=== PATIENT | female | born 1980 | race Caucasian/White ===

== ENCOUNTER 2016-12-17 06:22 | Emergency (ER) | payer MEDICAID ==
[2016-12-17 06:37] VITALS: BP 110/69
== END 2016-12-17 07:01 | disposition home or self-care (01) ==
LOC: ED 06:22
DX: B34.9 Viral infection, unspecified (principal); E07.9 Disorder of thyroid, unspecified

== ENCOUNTER 2018-04-12 10:17 | Inpatient (IN) | payer OTHER ==
[~2018-04-12] VITALS: Ht 162.6 cm; Wt 90.4 kg
[2018-04-12 10:25] VITALS: Ht 162.6 cm; Wt 90.4 kg
[2018-04-12 11:00] LABS: microscopic required? YES; urine erythrocyte 1+ (NEGATIVE)
[2018-04-12 11:02] LABS: CALCIUM 8.8 mg/dL (8.5-10.1); CARBON DIOXIDE 25.3 mmol/L (21-32); CREATININE SERUM 1.2 mg/dL (0.6-1.0); POTASSIUM SERUM 3.4 mmol/L (3.5-5.1)
[2018-04-12 11:33] LABS: BASOPHIL % 0.4 % (0-2); PLATELET COUNT 213 x10^3mcL (130-400); RED CELL DISTRIBUTION WIDTH 15.6 % (11.5-14.5)
[2018-04-12 12:29] LABS: ALBUMIN 3.9 g/dL (3.4-5.0); BILIRUBIN DIRECT 0.07 mg/dL (0.0-0.2); BILIRUBIN TOTAL 0.19 mg/dL (0.20-1.00); TOTAL PROTEIN, SERUM 8.8 g/dL (6.4-8.2)
[2018-04-12] MEDS ORDERED: SYNTHROID0.175 MG PO (13:14)
[2018-04-12 14:00] LABS: PHOSPHOROUS 2.1 mg/dL (2.5-4.9)
[2018-04-12 14:01] LABS: CHOLESTEROL/HDL RATIO 6.1
[2018-04-12 14:23] VITALS: BP 113/82
[2018-04-12 14:43] LABS: FREE T4 0.22 ng/dL (0.76-1.46)
[2018-04-12 14:44] LABS: FREE THYROXINE INDEX 0.1 ug/dL (1.4-4.5)
[2018-04-12 15:15] LABS: T4(THYROXINE) 0.5 ug/dL (4.7-13.3)
[2018-04-12 17:30] VITALS: BP 143/75
[2018-04-12 17:53] VITALS: BP 103/77
[2018-04-12 20:46] VITALS: BP 92/60
[2018-04-13 05:29] VITALS: BP 100/70
[2018-04-13 06:28] LABS: CALCIUM 8.8 mg/dL (8.5-10.1); CARBON DIOXIDE 26.6 mmol/L (21-32); CREATININE SERUM 1.1 mg/dL (0.6-1.0); POTASSIUM SERUM 4.2 mmol/L (3.5-5.1)
[2018-04-13 07:19] LABS: BASOPHIL % 0.6 % (0-2); PLATELET COUNT 273 x10^3mcL (130-400)
[2018-04-13 07:20] LABS: RED CELL DISTRIBUTION WIDTH 15.9 % (11.5-14.5)
[2018-04-13 09:21] VITALS: BP 106/78
[2018-04-13] MEDS ORDERED: PRE20 PO (15:47)
[2018-04-13 15:49] VITALS: BP 106/78
== END 2018-04-13 16:57 | disposition home or self-care (01) | DRG 347 ==
LOC: ED 10:17 → MU 13:29
PROVIDERS: Emergency Medicine; Internal Medicine
DX: M54.5 Low back pain (principal); N17.0 Acute kidney failure with tubular necrosis; E87.6 Hypokalemia; E03.9 Hypothyroidism, unspecified; R80.9 Proteinuria, unspecified; E78.5 Hyperlipidemia, unspecified; E66.9 Obesity, unspecified; Z68.34 Body mass index [BMI] 34.0-34.9, adult; Z88.8 Allergy status to other drugs, medicaments and biological substances; Z91.013 Allergy to seafood; Z83.3 Family history of diabetes mellitus; Z82.0 Family history of epilepsy and other diseases of the nervous system; G43.909 Migraine, unspecified, not intractable, without status migrainosus
CPT/HCPCS: 83880; 84439; J3010; J7512; Q0092; Q0162

== ENCOUNTER 2018-04-18 11:21 | Emergency (ER) | payer OTHER ==
[~2018-04-18] VITALS: Ht 162.6 cm; Wt 90.7 kg
[~2018-04-18 11:21] MED LIST: PRE20 PO; SYNTHROID0.175 MG PO
[2018-04-18 11:25] VITALS: Ht 162.6 cm; Wt 90.7 kg
[2018-04-18 12:27] LABS: BASOPHIL % 0.8 % (0-2); PLATELET COUNT 338 x10^3mcL (130-400)
[2018-04-18 12:29] LABS: RED CELL DISTRIBUTION WIDTH 14.9 % (11.5-14.5)
[2018-04-18 12:40] LABS: CALCIUM 8.7 mg/dL (8.5-10.1); CARBON DIOXIDE 33.2 mmol/L (21-32); CREATININE SERUM 1.1 mg/dL (0.6-1.0); POTASSIUM SERUM 3.9 mmol/L (3.5-5.1)
[2018-04-18 12:44] LABS: ALBUMIN 3.9 g/dL (3.4-5.0); BILIRUBIN TOTAL 0.2 mg/dL (0.20-1.00); MAGNESIUM 2.5 mg/dL (1.8-2.4); TOTAL PROTEIN, SERUM 7.9 g/dL (6.4-8.2)
[2018-04-18 12:55] LABS: FREE T4 0.25 ng/dL (0.76-1.46)
[2018-04-18 13:28] LABS: FREE THYROXINE INDEX 0.1 ug/dL (1.4-4.5); T4(THYROXINE) < 0.5 ug/dL (4.7-13.3)
[2018-04-18 15:25] VITALS: BP 123/79
== END 2018-04-18 15:24 | disposition home or self-care (01) ==
LOC: ED 11:21
PROVIDERS: Emergency Medicine
DX: R53.1 Weakness (principal); M25.562 Pain in left knee; M25.561 Pain in right knee; E03.9 Hypothyroidism, unspecified; Z98.890 Other specified postprocedural states; Z91.013 Allergy to seafood
CPT/HCPCS: 36415; 84439

== ENCOUNTER 2018-10-12 17:25 | Emergency (ER) | payer OTHER ==
[~2018-10-12] VITALS: Ht 162.6 cm; Wt 92.1 kg
[2018-10-12 17:32] VITALS: Ht 162.6 cm; Wt 92.1 kg
[2018-10-12 18:56] LABS: BASOPHIL % 0.5 % (0-2); PLATELET COUNT 228 x10^3mcL (130-400)
[2018-10-12 18:57] LABS: RED CELL DISTRIBUTION WIDTH 15.1 % (11.5-14.5)
[2018-10-12 20:06] VITALS: BP 102/64
== END 2018-10-12 20:06 | disposition home or self-care (01) ==
LOC: ED 17:25
PROVIDERS: Emergency Medicine
DX: N94.6 Dysmenorrhea, unspecified (principal); D64.9 Anemia, unspecified; Z88.6 Allergy status to analgesic agent; Z98.890 Other specified postprocedural states
CPT/HCPCS: 36415

== ENCOUNTER 2018-11-24 15:56 | Emergency (ER) | payer OTHER ==
[~2018-11-24] VITALS: Ht 160 cm; Wt 90.7 kg
[2018-11-24 16:05] VITALS: Ht 160 cm; Wt 90.7 kg
[2018-11-24 18:09] VITALS: BP 112/74
== END 2018-11-24 18:09 | disposition home or self-care (01) ==
LOC: ED 15:56
DX: M79.10 Myalgia, unspecified site (principal); Z98.890 Other specified postprocedural states; Z88.6 Allergy status to analgesic agent